=== PATIENT | female | born 1975 | race Caucasian/White ===

== ENCOUNTER → 2017-07-16 | Outpatient (CLI) | payer BC ==
--- NOTE | 2017-07-19 11:00 | MM ---
Reason for exam: screening (asymptomatic). Last mammogram was performed 4 years and 1 month ago. Physical Findings: A clinical breast exam by your physician is recommended on an annual basis and results should be correlated with mammographic findings. MG Screening Mammo w CAD Bilateral CC and MLO view(s) were taken. Prior study comparison: June 09, 2013, bilateral digital screening mammo w/CAD. The breast tissue is heterogeneously dense. This may lower the sensitivity of mammography. Finding: There are typically benign round, diffuse/scattered and grouped calcifications in both breasts. There is no discrete abnormality. ASSESSMENT: Benign, BI-RAD 2 RECOMMENDATION: Routine screening mammogram of both breasts in 1 year.
== END | disposition home or self-care (01) ==
LOC: RADMAMWWP 09:14
PROVIDERS: ATTEND Obstetrics & Gynecology
DX: Z12.31 Encounter for screening mammogram for malignant neoplasm of breast (principal)
CPT/HCPCS: 77067

== ENCOUNTER → 2018-10-10 | Outpatient (CLI) | payer BC ==
--- NOTE | 2018-10-11 10:50 | MM ---
Reason for exam: screening (asymptomatic). Last mammogram was performed 1 year and 3 months ago. Physical Findings: A clinical breast exam by your physician is recommended on an annual basis and results should be correlated with mammographic findings. MG 3D Screening Mammo W/Cad Bilateral CC and MLO view(s) were taken. Prior study comparison: July 16, 2017, bilateral MG screening mammo w CAD. June 09, 2013, bilateral digital screening mammo w/CAD. The breast tissue is heterogeneously dense. This may lower the sensitivity of mammography. No significant changes when compared with prior studies. ASSESSMENT: Negative, BI-RAD 1 RECOMMENDATION: Routine screening mammogram of both breasts in 1 year.
== END | disposition home or self-care (01) ==
LOC: RADMAMWWP 11:13
PROVIDERS: ATTEND Obstetrics & Gynecology
DX: Z12.31 Encounter for screening mammogram for malignant neoplasm of breast (principal)
CPT/HCPCS: 77063; 77067

== ENCOUNTER → 2019-04-07 | Outpatient (CLI) | payer BC ==
--- NOTE | 2019-04-07 14:59 | US ---
EXAMINATION TYPE: US kidneys/renal and bladder DATE OF EXAM: 04/07/2019 COMPARISON: US 2013 CLINICAL HISTORY: N17.9 acute kidney injury. FACUNDO, patient states no other symptoms. EXAM MEASUREMENTS: Right Kidney: 9.6 x 4.1 x 4.1 cm Left Kidney: 11.2 x 4.7 x 4.3 cm Right Kidney: No hydronephrosis or nephrolithiasis. Left Kidney: No hydronephrosis or nephrolithiasis. Bladder: wnl Bilateral Jets seen: yes There is no evidence for hydronephrosis at this point in time. No nephrolithiasis is seen. No kimberly s are identified. The urinary bladder is anechoic. Bilateral ureteral jets are seen. IMPRESSION: No hydronephrosis or nephrolithiasis of either kidney.
== END | disposition home or self-care (01) ==
LOC: RADUSWWP 14:04
PROVIDERS: ATTEND Internal Medicine
DX: N17.9 Acute kidney failure, unspecified (principal)
CPT/HCPCS: 76770

== ENCOUNTER → 2019-07-06 | Outpatient (CLI) | payer BC ==
--- NOTE | 2019-07-07 09:53 | XR ---
EXAMINATION TYPE: XR chest 2V DATE OF EXAM: 07/06/2019 COMPARISON: 03/24/2010 INDICATION: Cough and congestion x4 days TECHNIQUE: Frontal and lateral views of the chest are obtained. FINDINGS: The heart size is normal. The pulmonary vasculature is normal. The lungs are clear. IMPRESSION: 1. No acute pulmonary process.
== END | disposition home or self-care (01) ==
LOC: RAD 16:23
PROVIDERS: ATTEND Internal Medicine
DX: J20.9 Acute bronchitis, unspecified (principal)
CPT/HCPCS: 71046

== ENCOUNTER → 2019-12-19 | Outpatient (CLI) | payer BC ==
--- NOTE | 2019-12-20 10:07 | MM ---
Reason for exam: screening (asymptomatic). Last mammogram was performed 1 year and 2 months ago. Physical Findings: A clinical breast exam by your physician is recommended on an annual basis and results should be correlated with mammographic findings. MG 3D Screening Mammo W/Cad Bilateral CC and MLO view(s) were taken. Prior study comparison: October 10, 2018, bilateral MG 3d screening mammo w/cad. July 16, 2017, bilateral MG screening mammo w CAD. The breast tissue is extremely dense which could obscure a lesion on mammography. Benign appearing bilateral calcifications. No significant changes when compared with prior studies. ASSESSMENT: Benign, BI-RAD 2 RECOMMENDATION: Routine screening mammogram of both breasts in 1 year.
== END | disposition home or self-care (01) ==
LOC: RADMAMWWP 12:39
PROVIDERS: ATTEND Obstetrics & Gynecology
DX: Z12.31 Encounter for screening mammogram for malignant neoplasm of breast (principal)
CPT/HCPCS: 77063; 77067

== ENCOUNTER → 2020-02-23 | Outpatient (CLI) | payer BC ==
--- NOTE | 2020-02-23 13:00 | XR ---
EXAMINATION TYPE: XR hand complete LT DATE OF EXAM: 02/23/2020 COMPARISON: None HISTORY: Strain of left ring finger, initial encounter TECHNIQUE: Three-view left hand FINDINGS: There is soft tissue swelling over the proximal ring finger. The ring is present during thi s examination. The osseous structures appear intact. No acute fractures are evident. Joint spaces are preserved. IMPRESSION: 1. No acute osseous abnormality. 2. Soft tissue swelling ring finger
== END | disposition home or self-care (01) ==
LOC: RADXRMAIN 12:31
PROVIDERS: ATTEND Internal Medicine
DX: M79.89 Other specified soft tissue disorders (principal)

== ENCOUNTER 2021-03-10 17:47 | Emergency (ER) | payer BC ==
--- NOTE | 2021-03-10 19:12 | XR ---
EXAMINATION TYPE: XR chest 2V DATE OF EXAM: 03/10/2021 COMPARISON: 07/06/2019 TECHNIQUE: PA and lateral views submitted. HISTORY: Cough FINDINGS: The lungs are clear and there is no pneumothorax, pleural effusion, or focal pneumonia. I have a pr ominent interstitium. IMPRESSION: 1. Correlate for bronchitis or viral bronchiolitis.
--- NOTE | 2021-03-10 21:49 | ED ---
SOB HPI - General Chief Complaint: Shortness of Breath Stated Complaint: covid+, JONE Time Seen by Provider: 03/10/21 21:19 Source: patient, RN notes reviewed Mode of arrival: ambulatory Limitations: no limitations - History of Present Illness Initial Comments: Patient is a 45-year-old female presenting to the emergency department with concerns of shortness of breath. Patient states 4 days ago she started having a mild cough, the next day she went to get Covid tested and it did come back positive. She is already received antiviral infusion via the EMS on Wednesday, 2 days ago. The urgent care called her today to confirm her positive test, they prescribed her prednisone as well as an albuterol inhaler. She took the first dose today. She presents to the ER with complaints of shortness of breath and some discomfort in her back. She states that worse when she takes in a deep breath or when she coughs. She has been taking ibuprofen. She denies any fevers today, no chills, no nausea or vomiting, no diarrhea, no abdominal pain. She denies being . She denies any recent travel, no leg pain. She denies history of DVTs. She has no further complaints today. Her vitals are stable upon arrival. - Related Data Home Medications Medication Instructions Recorded Confirmed Isomethept/Dichlphn/Acetaminop 1 - 2 cap PO Q4HR PRN 10/14/15 10/14/15 [Midrin] Levothyroxine Sodium [Synthroid] 200 mcg PO QAM 10/14/15 10/14/15 Previous Rx's Medication Instructions Recorded Naproxen 500 mg PO Q12HR #20 tab 10/14/15 Allergies Allergy/AdvReac Type Severity Reaction Status Date / Time acetaminophen Allergy Unknown Verified 03/10/21 18:57 [From Darvocet-N] propoxyphene napsylate Allergy Unknown Verified 03/10/21 18:57 [From Darvocet-N] codeine AdvReac Nausea & Verified 03/10/21 18:57 Vomiting Sugars, Metabolically Active AdvReac Unknown Verified 03/10/21 18:57 Review of Systems ROS Statement: Those systems with pertinent positive or pertinent negative responses have been documented in the HPI. ROS Other: All systems not noted in ROS Statement are negative. Past Medical History Past Medical History: Thyroid Disorder Additional Past Medical History / Comment(s): Migraine History of Any Multi-Drug Resistant Organisms: None Reported Past Surgical History: Orthopedic Surgery Additional Past Surgical History / Comment(s): thyroidectomy Past Psychological History: No Psychological Hx Reported Smoking Status: Never smoker Past Alcohol Use History: Occasional Past Drug Use History: None Reported General Exam - General Exam Comments Initial Comments: GENERAL: Patient is well-developed and well-nourished. Patient is nontoxic and in no acute distress. HEAD: Atraumatic, normocephalic. EYES: Pupils equal round and reactive to light, extraocular movements intact, sclera anicteric, conjunctiva are normal. Eyelids were unremarkable. ENT: Nares patent, oropharynx clear without exudates. Moist mucous membranes. NECK: Normal range of motion, supple without lymphadenopathy or JVD. LUNGS: Unlabored respirations. Breath sounds clear to auscultation bilaterally and equal. No wheezes rales or rhonchi. HEART: Regular rate and rhythm without murmurs, rubs or gallops. ABDOMEN: Soft, nontender, normoactive bowel sounds. No guarding, no rebound. No masses appreciated. : Deferred MUSCULOSKELETAL: Normal extremities with adequate strength and normal range of motion, no pitting or edema. No clubbing or cyanosis. No bilateral calf pain. NEUROLOGICAL: Patient is alert and oriented x 3. Normal speech, normal gait. PSYCH: Normal mood, normal affect. SKIN: Warm, Dry, normal turgor, no rashes or lesions noted. Limitations: no limitations Course Vital Signs 03/10/21 18:53 Temperature 98.0 F Pulse Rate 85 Respiratory 18 Rate Blood Pressure 137/102 O2 Sat by Pulse 96 Oximetry Medical Decision Making - Medical Decision Making Patient is a 45-year-old female, tested positive for covid 3 days ago, received antiviral infusion 2 days ago via the EMS. She was prescribed prednisone and albuterol inhaler by [facility] today. She arrives for shortness of breath and upper back discomfort when she takes in a deep breath. Patient's vitals are normal, 96% on room air, she is not tachycardia, no lower leg pain. She denies history of DVTs. Her chest x-ray is completely unremarkable. Patient's exam is also unremarkable. I discussed with patient that her symptoms are related to the virus itself. I recommended taking ibuprofen for any discomfort. Continue with her steroids as well as her albuterol inhaler. She can follow up with her primary care. She is agreeable to this and is stable for discharge. Return parameters were discussed with her and she verbalized understanding. Case discussed with Dr. Ramachandran. Disposition Clinical Impression: COVID-19 Disposition: HOME SELF-CARE Condition: Stable Instructions (If sedation given, give patient instructions): Coronavirus Disease 2019 (COVID-19) Additional Instructions: Please return to the Emergency Department if symptoms worsen or any other concerns. Recommend ibuprofen and oriented leave for any discomfort. Continue with your already prescribed steroids and albuterol inhaler. Follow-up with your primary care. Is patient prescribed a controlled substance at d/c from ED?: No Referrals: Giovanni Duran MD [Primary Care Provider] - 1-2 days Time of Disposition: 21:52
[2021-03-10 21:59] VITALS: BP 135/88; PULSE 76; RESP 12; TEMP 99
== END 2021-03-10 22:00 | disposition home or self-care (01) ==
LOC: EC 17:47
DX: U07.1 COVID-19 (principal); E07.9 Disorder of thyroid, unspecified; Z88.6 Allergy status to analgesic agent; Z91.018 Allergy to other foods; Z88.5 Allergy status to narcotic agent; Z88.8 Allergy status to other drugs, medicaments and biological substances; Z79.890 Hormone replacement therapy
CPT/HCPCS: 71046; 99284

== ENCOUNTER → 2021-11-27 | Outpatient (CLI) | payer BC ==
--- NOTE | 2021-11-30 22:15 | MM ---
Reason for Exam: Screening (asymptomatic). Last mammogram was performed 1 year(s) and 11 month(s) ago. Patient History: Menarche at age 15. First Full-Term at age 29. Risk Values: Angela 5 year model risk: 0.8%. NCI Lifetime model risk: 9.7%. Prior Study Comparison: 07/16/2017 Bilateral Screening Mammogram, [facility]. 10/10/2018 Bilateral Screening Mammogram, [facility]. 12/19/2019 Bilateral Screening Mammogram, [facility]. Tissue Density: The breast tissue is heterogeneously dense. This may lower the sensitivity of mammography. Findings: Analyzed By CAD. A few benign oil cyst calcifications on both sides. Small grouped microcalcifications medial left breast middle to posterior depth on the CC view not well seen previously. These may be new. Further magnification views are recommended. Otherwise, no significant change. Overall Assessment: Incomplete: need additional imaging evaluation, BI-RAD 0 Management: Special View Mammogram of the left breast. Additional views left breast to include mag CC, 3-D CC rolled lateral, and 3-D LM views. Mag LM based on localization of calcifications on the lateral view. Electronically signed and approved by: Larry Street M.D. Radiologist
== END | disposition home or self-care (01) ==
LOC: RADMAMWWP 07:14
PROVIDERS: ATTEND Obstetrics & Gynecology
DX: Z12.31 Encounter for screening mammogram for malignant neoplasm of breast (principal)
CPT/HCPCS: 77063; 77067

== ENCOUNTER → 2021-12-04 | Outpatient (CLI) | payer BC ==
--- NOTE | 2021-12-04 08:24 | MM ---
Reason for Exam: Additional evaluation requested from abnormal screening. Last screening mammogram was performed less than 1 month ago. Patient History: Menarche at age 15. First Full-Term at age 29. Risk Values: Angela 5 year model risk: 0.8%. NCI Lifetime model risk: 9.7%. Prior Study Comparison: 10/10/2018 Bilateral Screening Mammogram, [facility]. 12/19/2019 Bilateral Screening Mammogram, [facility]. 11/27/2021 Bilateral MG 3D screening mammo w/cad, [facility]. Tissue Density: Left: The breast tissue is heterogeneously dense. This may lower the sensitivity of mammography. Findings: Analyzed By CAD. Faint calcifications inner left breast. Six-month follow-up mammography advised. Overall Assessment: Probably benign, BI-RAD 3 Management: Diagnostic Mammogram of the left breast in 6 months. A clinical breast exam by your physician is recommended on an annual basis and results should be correlated with mammographic findings. This exam should not preclude additional follow-up of suspicious palpable abnormalities. Results were given to the patient verbally at the time of exam. Electronically signed and approved by: Duncan Story M.D. Radiologis
== END | disposition home or self-care (01) ==
LOC: RADMAMWWP 06:58
PROVIDERS: ATTEND Obstetrics & Gynecology
DX: R92.8 Other abnormal and inconclusive findings on diagnostic imaging of breast (principal)
CPT/HCPCS: 77061; 77065

== ENCOUNTER → 2022-05-27 | Outpatient (CLI) | payer BC ==
--- NOTE | 2022-05-27 09:34 | MM ---
Reason for Exam: Follow-up at short interval from prior study. Last screening mammogram was performed 6 month(s) ago. Patient History: Menarche at age 15. First Full-Term at age 29. Premenopausal. Risk Values: Angela 5 year model risk: 0.8%. NCI Lifetime model risk: 9.7%. Prior Study Comparison: 12/19/2019 Bilateral Screening Mammogram, [facility]. 11/27/2021 Bilateral MG 3D screening mammo w/cad, [facility]. 12/04/2021 Left MG 3D work up w/cad LT, [facility]. Tissue Density: Left: The breast tissue is heterogeneously dense. This may lower the sensitivity of mammography. Findings: Analyzed By CAD. Areas of calcifications are less well-visualized on today's exam area thought to represent a calcific patient's is not significantly changed when comparing to priors dating back to 11/27/2021. Overall Assessment: Probably benign, BI-RAD 3 Management: Diagnostic Mammogram of the left breast in 6 months. Screening Mammogram of the right breast in 6 months. Back to yearly screening in 6 months with this left breast calcifications can be reexamined. A clinical breast exam by your physician is recommended on an annual basis and results should be correlated with mammographic findings. This exam should not preclude additional follow-up of suspicious palpable abnormalities. Results were given to the patient verbally at the time of exam. Electronically signed and approved by: Sherman Pollard DO
== END | disposition home or self-care (01) ==
LOC: RADMAMWWP 08:57
PROVIDERS: ATTEND Obstetrics & Gynecology
DX: R92.8 Other abnormal and inconclusive findings on diagnostic imaging of breast (principal)
CPT/HCPCS: 77061; 77065

== ENCOUNTER → 2022-12-31 | Outpatient (CLI) | payer BC ==
--- NOTE | 2022-12-31 09:31 | MM ---
Reason for Exam: Follow-up at short interval from prior study. Last mammogram was performed 1 year(s) and 2 month(s) ago. Patient History: Menarche at age 15. First Full-Term at age 29. Premenopausal. Risk Values: Angela 5 year model risk: 0.9%. NCI Lifetime model risk: 9.6%. Tissue Density: The breast tissue is heterogeneously dense. This may lower the sensitivity of mammography. Findings: Analyzed By CAD. Small benign oil cyst calcifications on both sides. The previous inner left breast calcification has matured into a benign oil cyst. Areas of asymmetric density remain unchanged. No significant change from prior exams. Overall Assessment: Benign, BI-RAD 2 Management: Screening Mammogram of both breasts in 1 year. . Results were given to the patient verbally at the time of exam. Patient should continue monthly self-breast exams. A clinical breast exam by your physician is recommended on an annual basis. This exam should not preclude additional follow-up of suspicious palpable abnormalities. Note on Angela scores and lifetime risk: 1. A Angela score greater than 3% is considered moderate risk. If this is the case, consider specialist referral to assess eligibility for a risk reducing agent. 2. If overall lifetime risk for the development of breast cancer is 20% or higher, the patient may qualify for future screening with alternating mammogram and breast MRI. Electronically signed and approved by: Larry Street M.D. Radiologist
== END | disposition home or self-care (01) ==
LOC: RADMAMWWP 09:02
PROVIDERS: ATTEND Obstetrics & Gynecology
DX: R92.8 Other abnormal and inconclusive findings on diagnostic imaging of breast (principal)
CPT/HCPCS: 77062; 77066

== ENCOUNTER → 2023-11-01 | Outpatient (CLI) | payer BC ==
--- NOTE | 2023-11-01 08:43 | CT ---
EXAMINATION TYPE: CT brain wo con CT DLP: 1048.1 mGycm, Automated exposure control for dose reduction was used. DATE OF EXAM: 11/01/2023 8:21 AM COMPARISON: 10/14/2015. CLINICAL INDICATION:Female, 47 years old with history of R47.01 aphasia, aphasia TECHNIQUE: Brain: Axial CT images of the brain were obtained with coronal and sagittal reformats created and rev iewed. Contrast used: None. Oral contrast used: None. FINDINGS: Brain: Extra-axial spaces: No abnormal extra-axial fluid collections. Ventricular system: Within normal limits Cerebral parenchyma: No acute intraparenchymal hemorrhage or mass effect. The lynch-white junction is well differentiated. Cerebellum: Unremarkable. Mass effect: No evidence of midline shift. Intracranial vasculature: unremarkable Soft tissues: Normal. Calvarium/osseous structures: No depressed skull fracture. Paranasal sinuses and mastoid air cells: Mild scattered paranasal sinus disease. Visualized orbits: Orbital contents are intact. IMPRESSION: No acute intracranial process.
== END | disposition home or self-care (01) ==
LOC: RADCTMAIN 08:03
PROVIDERS: ATTEND Internal Medicine
DX: R47.01 Aphasia (principal)
CPT/HCPCS: 70450

== ENCOUNTER → 2024-01-03 | Outpatient (CLI) | payer BC ==
--- NOTE | 2024-02-01 09:08 | MM ---
Reason for Exam: Screening (asymptomatic). Last screening mammogram was performed 12 month(s) ago. Patient History: Menarche at age 15. First Full-Term at age 29. Premenopausal. Risk Values: Angela 5 year model risk: 0.9%. NCI Lifetime model risk: 9.5%. Prior Study Comparison: 12/04/2021 Left MG 3D work up w/cad LT, [facility]. 05/27/2022 Left MG 3D diag mammo w/cad LT, [facility]. 12/31/2022 Bilateral MG 3D diag mammo w/cad [facility], [facility]. Tissue Density: The breasts are heterogeneously dense, which may obscure small masses. Findings: Analyzed By CAD. Right breast: There is no suspicious group of microcalcifications or new suspicious mass. Benign-appearing calcifications right breast. Left breast: There is no suspicious group of microcalcifications or new suspicious mass. Benign-appearing calcifications left breast. Overall Assessment: Benign, BI-RAD 2 Management: Screening Mammogram of both breasts in [address] [facility] will attempt to contact patient to return for supplemental views and ultrasound if indicated. Patient should continue monthly self-breast exams. A clinical breast exam by your physician is recommended on an annual basis. This exam should not preclude additional follow-up of suspicious palpable abnormalities. Note on Angela scores and lifetime risk: 1. A Angela score greater than 3% is considered moderate risk. If this is the case, consider specialist referral to assess eligibility for a risk reducing agent. 2. If overall lifetime risk for the development of breast cancer is 20% or higher, the patient may qualify for future screening with alternating mammogram and breast MRI. Electronically signed and approved by: Sherman Pollard DO
== END | disposition home or self-care (01) ==
LOC: RADMAMWWP 14:00
PROVIDERS: ATTEND Internal Medicine
DX: Z12.31 Encounter for screening mammogram for malignant neoplasm of breast (principal); R92.333 Mammographic heterogeneous density, bilateral breasts
CPT/HCPCS: 77063; 77067